=== PATIENT | female | born 1955 | race Caucasian/White ===

== ENCOUNTER 2018-05-03 06:50 | Day surgery (SDC) | payer OTHER ==
[~2018-05-03] VITALS: Ht 160 cm; Wt 83.2 kg
[~2018-05-03 06:50] MED LIST: SODIUM CHLORIDE 0.9% 1,000 ML IV ONE
[2018-05-03] MEDS ORDERED: LIDOCAINE HCL 4% 50 ML SOLUTION TP ONE (06:51)
[2018-05-03] MEDS ORDERED: BENZOCAINE 20% 50 MCG/SPRAY 57 GM TP ONE (06:51)
[2018-05-03] MEDS ORDERED: LIDOCAINE HCL 2% 30 ML JELLY TP ONE (06:51)
[2018-05-03] MEDS ORDERED: SODIUM CHLORIDE 0.9% 1,000 ML IV ONE (07:15)
[2018-05-03 07:48] LABS: GLUCOMETER DEV NAME(LOC) SDS 5; GLUCOSE,POINT OF CARE 245 MG/DL (70-110)
[2018-05-03] MEDS ORDERED: MIDAZOLAM HCL 2 MG/2 ML VIAL ONE (08:05)
[2018-05-03] MEDS ORDERED: FentaNYL CITRATE-PF 100 MCG/2 ML VIAL ONE (08:05)
[2018-05-03] MEDS ORDERED: GABA-529 PO (08:18)
[2018-05-03] MEDS ORDERED: DICY20 PO (08:18)
[2018-05-03] MEDS ORDERED: ATOR40TA28 PO (08:18)
[2018-05-03] MEDS ORDERED: FISH1CAP27 PO (08:18)
[2018-05-03] MEDS ORDERED: CARV12 PO (08:18)
[2018-05-03] MEDS ORDERED: SITA50 PO (08:18)
[2018-05-03] MEDS ORDERED: NAPR-58 PO (08:18)
[2018-05-03] MEDS ORDERED: ACET-66 PO (08:18)
[2018-05-03] MEDS ORDERED: OMEP20 PO (08:18)
[2018-05-03] MEDS ORDERED: FURO20 PO (08:18)
[2018-05-03] MEDS ORDERED: INSLAN SQ (08:18)
[2018-05-03] MEDS ORDERED: LORA10TA7 PO (08:18)
[2018-05-03] MEDS ORDERED: MethylPREDNISolone SOD SUCC 125 MG/2 ML VIAL IVP ONE (09:30)
[2018-05-03] MEDS ORDERED: MethylPREDNISolone SOD SUCC 125 MG/2 ML VIAL ONE (09:48)
[2018-05-03] MEDS ORDERED: OXYGEN THERAPY IH SCH (20:00)
== END 2018-05-03 11:00 | disposition home or self-care (01) ==
LOC: SURGERY 06:50
PROVIDERS: ATTEND Internal Medicine Critical Care Medicine
DX: J38.4 Edema of larynx (principal); B37.0 Candidal stomatitis; J44.9 Chronic obstructive pulmonary disease, unspecified; I10 Essential (primary) hypertension; E11.9 Type 2 diabetes mellitus without complications; M19.90 Unspecified osteoarthritis, unspecified site; Z88.0 Allergy status to penicillin; Z88.6 Allergy status to analgesic agent; Z79.891 Long term (current) use of opiate analgesic; Z79.4 Long term (current) use of insulin; Z87.891 Personal history of nicotine dependence; Z98.890 Other specified postprocedural states; Z79.899 Other long term (current) drug therapy
CPT/HCPCS: 31623; 31624; 71045; 82962; 87015; 87070; 87147; 87205; 87206; 87220; 88108; 88312; J2250; J2930; J3010; J7030